=== PATIENT | female | born 1945 | race Caucasian/White ===

== ENCOUNTER 2020-05-19 10:56 | Day surgery (SDC) | payer MEDICARE, OTHER ==
[~2020-05-19] VITALS: Ht 154.9 cm; Wt 58.5 kg
[~2020-05-19 10:56] MED LIST: ASPI81CH PO; HYDACE5 PO; LEVSOD137 PO; LEVSOD25 PO; LO-DOSE ASPIRIN81 MG PO; MULTI VITAMIN1 EACH PO; OMEP20ER PO; SUPERIOR DIGES1 EACH PO
[2020-05-19] MEDS ORDERED: CODACE30 (11:16)
== END 2020-05-19 13:37 | disposition home or self-care (01) ==
LOC: ORSCSDS 10:56
PROVIDERS: Internal Medicine Gastroenterology
PROC: 0DBE8ZX Excision of Large Intestine, Via Natural or Artificial Opening Endoscopic, Diagnostic (ICD-10-PCS; principal; 2020-05-19 12:15)
DX: R10.32 Left lower quadrant pain (principal); K57.30 Diverticulosis of large intestine without perforation or abscess without bleeding; K64.8 Other hemorrhoids; R19.7 Diarrhea, unspecified; R15.9 Full incontinence of feces; Z86.010 Personal history of colon polyps; E03.9 Hypothyroidism, unspecified; E78.5 Hyperlipidemia, unspecified; I10 Essential (primary) hypertension; G25.0 Essential tremor; Z79.82 Long term (current) use of aspirin; Z79.899 Other long term (current) drug therapy
CPT/HCPCS: 88305; J2704; J7120

== ENCOUNTER 2023-04-11 10:46 | Day surgery (SDC) | payer MEDICARE, OTHER ==
[~2023-04-11] VITALS: Ht 152.4 cm; Wt 57.9 kg
[~2023-04-11 10:46] MED LIST changes: +CODACE30; +EUTHYROX125 MCG; +METO25ER
[2023-04-11 14:30] VITALS: BP 126/70
--- NOTE | 2023-04-11 14:45 | NUR ---
04/11/23 [id number] [address] Randall PT STATES THAT OXYCODONE AND VICODIN GIVE HER AN UPSET STOMACH, BUT THAT THEY DO NOT GIVE HER AN ANAPHYLACTIC REACTION, AND SHE IS OK WITH TAKING THE NORCO THAT DR CHU PRESCRIBED.
== END 2023-04-11 15:40 | disposition home or self-care (01) ==
LOC: ORSCSDS 10:46
PROVIDERS: Podiatrist Foot & Ankle Surgery
PROC: 0QSQ04Z Reposition Right Toe Phalanx with Internal Fixation Device, Open Approach (ICD-10-PCS; principal; 2023-04-11 12:15)
PROC: 0SGP04Z Fusion of Right Toe Phalangeal Joint with Internal Fixation Device, Open Approach (ICD-10-PCS; principal; 2023-04-11 12:15)
PROC: 0SGH04Z Fusion of Right Tarsal Joint with Internal Fixation Device, Open Approach (ICD-10-PCS; principal; 2023-04-11 12:15)
DX: M21.611 Bunion of right foot (principal); M20.41 Other hammer toe(s) (acquired), right foot; M79.671 Pain in right foot; E03.9 Hypothyroidism, unspecified; Z79.899 Other long term (current) drug therapy
CPT/HCPCS: A9270; C1713; J0690; J1100; J2405; J2704; J3010; J7120

== ENCOUNTER → 2023-07-27 | Outpatient (CLI) | payer MEDICARE, OTHER ==
[2023-07-27 11:19] LABS: BASOPHILS ABSOLUTE AUTO 0.05 K/mm3 (0.00-0.23); BASOPHILS PERCENT AUTO 1 % (0-2); EOSINOPHILS ABSOLUTE AUTO 0.21 K/mm3 (0.00-0.68); EOSINOPHILS PERCENT AUTO 3 % (0-6); IMMATURE GRAN ABSOLUTE AUTO 0.01 K/mm3 (0.00-0.10); IMMATURE GRAN PERCENT AUTO 0 % (0-1); LYMPHOCYTES ABSOLUTE AUTO 1.33 K/mm3 (0.84-5.20); LYMPHOCYTES PERCENT AUTO 18 % (21-46); MONOCYTES ABSOLUTE AUTO 0.54 K/mm3 (0.16-1.47); MONOCYTES PERCENT AUTO 7 % (4-13); Mean Corpuscular HGB 28.8 pg (26.0-34.0); Mean Corpuscular HGB Conc 32.5 g/dL (31.5-36.5); Mean Corpuscular Volume 89 fL (80-100); Mean Platelet Volume 9.8 fL (9.1-12.4); NEUTROPHILS ABSOLUTE AUTO 5.47 K/mm3 (1.96-9.15); NEUTROPHILS PERCENT AUTO 72 % (41-73); Platelet Count 244 K/mm3 (150-400); RDW Coefficient Variation 14.4 % (11.7-14.2); RDW Standard Deviation 46.2 fL (35.1-46.3); Red Blood Cell Count 4.51 M/mm3 (3.80-5.20); White Blood Cell Count 7.61 K/mm3 (4.00-11.30)
[2023-07-27 11:27] LABS: Albumin, Blood 3.5 g/dL (3.4-5.0); Albumin/Globulin Ratio 1.1 (0.8-1.8); Bilirubin, Total 0.4 mg/dL (0.1-1.0); Calcium, Blood 9.3 mg/dL (8.5-10.1); Creatinine, Blood 0.84 mg/dL (0.40-1.00); Globulin, Blood 3.3 g/dL (2.2-4.0); Potassium, Blood 3.9 mmol/L (3.5-5.5); Total Protein, Blood 6.8 g/dL (6.4-8.2)
== END | disposition home or self-care (01) ==
LOC: LAB SHORT 11:08 → LAB 11:08
PROVIDERS: Physician Assistant
DX: R41.0 Disorientation, unspecified (principal); R82.79 Other abnormal findings on microbiological examination of urine
CPT/HCPCS: 80053; 84484; 85025; 87086

== ENCOUNTER → 2025-01-02 | Outpatient (CLI) | payer MEDICARE, OTHER ==
[2025-01-02 12:45] LABS: BASOPHILS ABSOLUTE AUTO 0.04 K/mm3 (0.00-0.23); BASOPHILS PERCENT AUTO 1 % (0-2); EOSINOPHILS ABSOLUTE AUTO 0.16 K/mm3 (0.00-0.68); EOSINOPHILS PERCENT AUTO 2 % (0-6); Hematocrit 40.2 % (33.0-51.0); Hemoglobin 13.3 g/dL (11.5-16.0); IMMATURE GRAN ABSOLUTE AUTO 0.02 K/mm3 (0.00-0.10); IMMATURE GRAN PERCENT AUTO 0 % (0-1); LYMPHOCYTES ABSOLUTE AUTO 1.37 K/mm3 (0.84-5.20); LYMPHOCYTES PERCENT AUTO 19 % (21-46); MONOCYTES ABSOLUTE AUTO 0.45 K/mm3 (0.16-1.47); MONOCYTES PERCENT AUTO 6 % (4-13); Mean Corpuscular HGB Conc 33.1 g/dL (31.5-36.5); Mean Corpuscular Volume 89 fL (80-100); NEUTROPHILS ABSOLUTE AUTO 5.05 K/mm3 (1.96-9.15); NEUTROPHILS PERCENT AUTO 71 % (41-73); NRBC ABSOLUTE 0.00 K/mm3 (0.00-0.02); NRBC Auto 0.0 /100 WBC (0.0-0.2); Platelet Count 259 K/mm3 (150-400); RDW Coefficient Variation 14.4 % (11.7-14.2); RDW Standard Deviation 45.6 fL (35.1-46.3)
== END | disposition home or self-care (01) ==
LOC: LAB 12:41 → LAB SHORT 12:41
PROVIDERS: Family Medicine
DX: D69.2 Other nonthrombocytopenic purpura (principal)
CPT/HCPCS: 85025

== ENCOUNTER 2025-05-27 06:49 | Day surgery (SDC) | payer MEDICARE, OTHER ==
[~2025-05-27] VITALS: Ht 149.9 cm; Wt 56.5 kg
[2025-05-27] MEDS ORDERED: ATORVASTATIN CA10 M1 (07:34)
[2025-05-27] MEDS ORDERED: XARELTO20 M1 (07:34)
[2025-05-27] MEDS ORDERED: C COMPLEX1000 M1 (07:36)
[2025-05-27] MEDS ORDERED: Flonase 0.05% N16 GM (07:38)
[2025-05-27] MEDS ORDERED: VITAMIN D5000 UNIT (07:38)
[2025-05-27] MEDS ORDERED: B-121000 MC3 (07:39)
[2025-05-27 09:51] VITALS: BP 130/78
== END 2025-05-27 09:50 | disposition home or self-care (01) ==
LOC: ORSCSDS 06:49
PROVIDERS: Internal Medicine Gastroenterology
PROC: 0DJD8ZZ Inspection of Lower Intestinal Tract, Via Natural or Artificial Opening Endoscopic (ICD-10-PCS; principal; 2025-05-27 08:00)
DX: Z12.11 Encounter for screening for malignant neoplasm of colon (principal); K57.30 Diverticulosis of large intestine without perforation or abscess without bleeding; Z86.0101 Personal history of adenomatous and serrated colon polyps; K21.9 Gastro-esophageal reflux disease without esophagitis; I10 Essential (primary) hypertension; E78.5 Hyperlipidemia, unspecified; Z86.718 Personal history of other venous thrombosis and embolism; E89.0 Postprocedural hypothyroidism; Z85.850 Personal history of malignant neoplasm of thyroid; G25.0 Essential tremor; Z79.899 Other long term (current) drug therapy; Z79.01 Long term (current) use of anticoagulants
CPT/HCPCS: J2704; J7120